=== PATIENT | female | born 1940 | race Caucasian/White ===

== ENCOUNTER 2019-10-29 14:24 | Observation (INO) | payer OTHER ==
[~2019-10-29] VITALS: Ht 149.9 cm; Wt 65.3 kg
--- NOTE | ~2019-10-29 | HC ---
[facility] [place] [address] CONSULTATION Name: RUDY LIGHT Room #: REG [facility]#: [id number] Admission: 10/29/19 Attend Phys: Discharge: Date of : 42 Report #: [id number] THIS REPORT FOR: cc: Pedro Casarez,Buddy Zhao MD ~ CC: Nikolay Casarez DATE OF SERVICE: 10/29/2019 HISTORY OF PRESENT ILLNESS: This is a 79-year-old female patient who was evaluated by me for ataxia. She apparently was weak and fell, some numbness was noticed on the left side. I talked to Dr. Mesa and they all indicated the patient's symptoms are improving. She feels she is back to the baseline. Noncontrast CT scan of the head was okay. REVIEW OF SYSTEMS: Positive for some depression. She denies any prior history of stroke. Because of the urgency of the situation review of systems was done quickly. She is a diabetic. She has not taken the treatment for some time and does not check her blood sugar. She has not been to her family doctor's office and they require her to come back before they fill her medication. When she came in, her blood sugar was more than 400, which was 446. Her vitals were running reasonably well, although her blood pressure was little high when she came in. PAST MEDICAL HISTORY: Negative for CVA. FAMILY HISTORY: This patient has a supportive family and I talked to them in detail. PHYSICAL EXAMINATION: My examination indicate she was alert, responsive and her speech was at her baseline. Cranial nerve examination was pretty much unremarkable. I did not see any marked hemianopsia, although her cooperation is poor. I need to recheck it again. I did not see any gross facial palsy. On NIH scale, she is able to hold the left arm and left leg up for without any drift. When I checked, but she looks weaker on the left side than the right side, the best I can tell. She is right handed, some difference is expected. When I did the sensation, she says it feels somewhat differently, but she can feel. She has no nigrxd-vz-ivzn or khjs-pc-rscn abnormality. I even made her walk and she is able to walk without much assistance. It was mainly a standby assist. She had a CT scan of the head. I have talked to Dr. Mesa and I told her if her BUN and creatinine is normal, he can do a CT angio and perfusion, but if it is abnormal, MRI should be done. CT angio does indicate that she may have an aneurysm and there is a question of stroke there. Clinically, she has [address] [address] CONSULTATION Name: NADEGERUDY Room #: REG [facility]#: [id number] Admission: 10/29/19 Attend Phys: Discharge: Date of : 42 Report #: [id number] improved. I had a long talk with the patient and the son. We talked about TPA. We used to give TPA to the patients who even have a minor deficit. Now a study has indicated that it is not beneficial in those circumstances. Other studies have some contradicting as well. I discussed all of them. I discussed the option of giving her TPA. They do not want TPA and that is reasonable since she is improving, but I would like to give her fluids. Her GFR actually is low at 40. She did get 1000 mL of normal saline. I will keep her on normal saline to keep her blood pressure somewhat high. She does have an aneurysm. It is probably an incidental finding. I asked the Emergency Room doctor to call delicia and and evaluate her for aneurysm. If they do not think aneurysm need to be addressed and she can be given aspirin and Plavix that is what we will give her. If they think aneurysm need to be addressed, she needs to be transferred there. More than 15 minutes of time was spent taking care of this patient today and majority was counseling and coordinating and I am going to see the patient again in a minute and talked them more. Thank you very much for this referral and if you have any questions, please feel free to contact me. By: 58 57 Buddy Gomes MD /nt
[2019-10-29 14:25] VITALS: BP 187/66
[2019-10-29 14:49] LABS: ABSOLUTE NEUTROPHILS 4.7 thou/uL (1.4-8.2); BASOPHILS 0.8 % (0.0-2.0); HEMATOCRIT 42.1 % (37.0-47.0); HEMOGLOBIN 13.9 gm/dL (12.0-15.0); LYMPHOCYTES 21.8 % (24.0-44.0); MCH 30.9 pg (26.0-34.0); MCHC 33.1 g/dL (28.0-37.0); MCV 93.5 fL (80.0-100.0); PLATELET COUNT 222 thou/uL (150-400); POLYS 68.4 % (36.0-66.0); RBC 4.51 mil/uL (4.20-5.00); RDW 12.6 % (10.5-14.5); WBC 6.9 thou/uL (4.0-11.0)
--- NOTE | 2019-10-29 14:53 | NUR ---
hospice office coordinator to see patient. pleasant 79y/o female. reports left sided weakness resulting in a fall from the bed. per EMS patient was leaning to the right side multiple times. blood sugar was 435 per EMS. pt taken directly to ct and tolerated well. NIHSS was 2. patient reported left lower ext sensory deficit as well as unable to state her age. we sat the patient up on the side of the bed and she did in fact lean to the right multiple times. she said she normally walks around without any difficulty and lives at home alone. she does have a walker at home but does not use it.
[2019-10-29 15:04] LABS: ANION GAP 11 mmol/L (7-16); BUN 21 mg/dL (7-18); CHLORIDE 97 mmol/L (98-107); CO2 28 mmol/L (21-32); CREATININE 1.3 mg/dL (0.6-1.0); GLUCOSE 446 mg/dL (74-106); POTASSIUM 4.2 mmol/L (3.5-5.1); SODIUM 136 mmol/L (136-145)
[2019-10-29 15:05] LABS: INR 1.3; PROTIME 13.6 Seconds (9.3-11.4)
[2019-10-29] MEDS ORDERED: NOHOMEMEDICATIONS (15:07)
[2019-10-29] MEDS ORDERED: GABAPENTIN100 MG PO (15:08)
[2019-10-29] MEDS ORDERED: VENLAFAXINE HCL25 MG PO (15:09)
[2019-10-29 15:16] LABS: ALBUMIN 2.8 g/dL (3.4-5.0); MAGNESIUM 1.7 mg/dL (1.8-2.4); SGOT 12 U/L (15-37); SGPT 19 U/L (30-65); TOTAL BILIRUBIN 0.4 mg/dL (0.2-1.0); TOTAL PROTEIN 6.7 g/dL (6.4-8.2); TROPONIN-I <0.06 ng/mL (<0.06)
--- NOTE | 2019-10-29 16:07 | EKG ---
[facility] [place] [address] ELECTROCARDIOGRAM REPORT Name: NADEGE,RUDY Room #: REG [facility]#: [id number] Admission: 10/29/19 Attend Phys: Discharge: Date of : 42 Report #: [id number] THIS REPORT FOR: cc: Pedro Casarez Kent DO Santiago, Patrick MD [facility] ~ THIS REPORT FOR: //name// [facility] ED Test Date: 2019-10-29 Test Time: 14:51:19 Pat Name: RUDY LIGHT Department: Room: Gender: F Applications Analyst: DENIS COYNE : 1940 Requested By: Nikolay Mesa Order Number: [id number] MD: Lino Lockhart Measurements Intervals Tyro Rate: 77 P: 15 KS: 150 QRS: -10 QRSD: 86 T: 29 QT: 400 QTc: 453 Interpretive Statements Sinus rhythm Low voltage, precordial leads Baseline wander in lead(s) I,aVL No previous ECG available for comparison Electronically Signed On 10-29-2019 16:07:26 CDT by Lino Lockhart [email or web address] <ELECTRONICALLY SIGNED> By: Lino Lockhart MD, FACC 10/29/19 1607 [id number] [id number] Lino Lockhart MD, [facility] /EPI
[2019-10-29 16:53] LABS: URINE BILIRUBIN NEGATIVE (Negative); URINE BLOOD TRACE (Negative); URINE CLARITY CLEAR; URINE COLOR YELLOW; URINE GLUCOSE-RANDOM* 3+ (Negative); URINE KETONES 1+ (Negative); URINE LEUKOCYTES-REFLEX NEGATIVE (Negative); URINE NITRITE-REFLEX NEGATIVE (Negative); URINE PROTEIN (DIPSTICK) NEGATIVE (Negative); URINE UROBILINOGEN 0.2 E.U./dl (0.2-1.0)
[2019-10-29 17:35] LABS: AMP/METHAMP Negative (Negative); BARBITURATES Negative (Negative); BENZODIAZEPINES Negative (Negative); COCAINE Negative (Negative); METHADONE Negative (Negative); OPIATES Negative (Negative); PCP Negative (Negative)
[2019-10-29 20:56] VITALS: BP 152/76
[2019-10-29 21:21] VITALS: BP 170/62
[2019-10-29 21:41] VITALS: BP 149/67
[2019-10-29 23:54] VITALS: BP 145/84
--- NOTE | 2019-10-30 04:16 | NUR ---
Pt was an ER admit who presented with elevated blood sugar and TIA symptoms. Pt is alert and oriented with no sign of distress noted. Pt is stable. Admission assessment and data completed. Denies any pain. Fall precaution in place. No skin issues noted. NIH performed. Scheduled meds administered. Pt tolerated PO intake. No acute events overnight. Continue to monitor pt. No further needs at this time.
[2019-10-30 05:48] VITALS: BP 164/86
[2019-10-30 05:58] LABS: HEMATOCRIT 41.5 % (37.0-47.0); HEMOGLOBIN 13.8 gm/dL (12.0-15.0); MCH 31.7 pg (26.0-34.0); MCHC 33.4 g/dL (28.0-37.0); RBC 4.36 mil/uL (4.20-5.00); RDW 12.6 % (10.5-14.5); WBC 7.8 thou/uL (4.0-11.0)
[2019-10-30 06:45] LABS: CALCIUM 8.9 mg/dL (8.5-10.1); CREATININE 0.9 mg/dL (0.6-1.0); MAGNESIUM 2.2 mg/dL (1.8-2.4); POTASSIUM 4.3 mmol/L (3.5-5.1)
[2019-10-30 06:53] LABS: CHOLESTEROL 302 mg/dL (<200); HDL CHOLESTEROL 39 mg/dL (>40); LDL CHOLESTEROL 226 mg/dL (<100); TC:HDL 7.7 Ratio (Not establshd); TRIGLYCERIDE 185 mg/dL (<150); VLDL 37 mg/dL (<40)
[2019-10-30 06:54] LABS: SERUM ASSESSMENT Clear
[2019-10-30 08:50] VITALS: BP 167/77
[2019-10-30] MEDS ORDERED: ASPIR 8181 MG PO (09:06)
[2019-10-30] MEDS ORDERED: ACETAMINOPHEN325 M1 PO (09:07)
[2019-10-30] MEDS ORDERED: PLAVIX 75 MG TA75 MG PO (09:14)
[2019-10-30] MEDS ORDERED: LIPITOR 10 MG10 M1 PO (09:14)
[2019-10-30] MEDS ORDERED: GLYBURIDE 5 MG T5 M1 PO (09:14)
--- NOTE | 2019-10-30 11:53 | NUR ---
bedside nurse called stated hospitalist said if therapy thinks needs rehab she can go today up to rehab or she will dc home with hh per bedside. cm passed on to cm team.
--- NOTE | 2019-10-30 11:57 | 2DMMODE ---
[facility] [place] [address] 2 D/M-MODE ECHOCARDIOGRAM Name: RUDY LIGHT Room #: 219-P [facility] Faith M.RHarpreet#: [id number] Admission: 10/29/19 Attend Phys: Gladys Bradley Discharge: Date of : 42 Report #: [id number] THIS REPORT FOR: cc: Pedro Casarez Kent DO Lammoglia,Oumra Palma MD ~ APPROVED REPORT Study performed: 10/30/2019 11:12:23 EXAM: Comprehensive 2D, Doppler, and color-flow Echocardiogram Patient Location: Bedside Room #: 219 Status: routine BSA: 1.60 HR: 74 bpm BP: 145/84 mmHg Rhythm: NSR Other Information Study Quality: Good Indications CVA/TIA Diabetes CAD Hypertension/HDD Echo Enhancing Agent Indication: Rule out Shunt Agent(s) / Amount(s) Used: Agitated Saline 7 cc 2D Dimensions RVDd: 31.24 mm IVSd: 10.07 (7-11mm) LVOT Diam: 19.11 (18-24mm) LVDd: 48.28 mm PWd: 10.32 (7-11mm) Ascending Ao: 28.44 (22-36mm) LVDs: 34.05 (25-40mm) Aortic Root: 29.11 mm IVC: 14.00 mm Volumes Left Atrial Volume (Systole) Single Plane 4CH: 32.93 mL Single Plane 2CH: 34.98 mL LA ESV Index: 23.00 mL/m2 [facility] [address] [place] [address] 2 D/M-MODE ECHOCARDIOGRAM Name: RUDY LIGHT Room #: 219-P [facility] IN ..#: [id number] Admission: 10/29/19 Attend Phys: Gladys Bianchi Discharge: Date of : 42 Report #: [id number] Aortic Valve AoV Peak Jorge.: 1.29 m/s AO Peak Gr.: 6.67 mmHg LVOT Max P.41 mmHg LVOT Max V: 1.05 m/s PAKO Vmax: 2.33 cm2 Mitral Valve E/A Ratio: 0.7 MV Decel. Time: 301.75 ms MV E Max Jorge.: 1.02 m/s MV A Jorge.: 1.53 m/s MV PHT: 87.51 ms IVRT: 119.95 ms Pulmonary Valve PV Peak Jorge.: 0.93 m/s PV Peak Gr.: 3.50 mmHg Pulmonary Vein P Vein S: 0.52 m/s P Vein A: 0.27 m/s P Vein D: 0.27 m/s P Vein A Dur.: 101.5 msec P Vein S/D Ratio: 1.93 Left Ventricle The left ventricle is normal size. There is normal LV segmental wall motion. There is normal left ventricular wall thickness. Left ventricular systolic function is normal. The left ventricular ejection fraction is within the normal range. LVEF is 55-60%. Grade I - abnormal relaxation pattern. Right Ventricle The right ventricle is normal size. The right ventricular systolic function is normal. Atria The left atrium size is normal. Interatrial septum is intact without evidence of ASD or PFO. The right atrium size is normal. Aortic Valve The aortic valve is normal in structure. The Aortic valve is sclerotic. Trace to mild aortic regurgitation. There is no aortic valvular stenosis. Mitral Valve The mitral valve is normal in structure. Trace mitral regurgitation. No evidence of mitral valve stenosis. [facility] [address] [place] [address] 2 D/M-MODE ECHOCARDIOGRAM Name: RUDY LIGHT Room #: 219-P [facility] IN M.R.#: [id number] Admission: 10/29/19 Attend Phys: Gladys Bianchi Discharge: Date of : 42 Report #: [id number] Tricuspid Valve The tricuspid valve is normal in structure. There is no tricuspid valve regurgitation noted. Pulmonic Valve The pulmonary valve is normal in structure. There is no pulmonic valvular regurgitation. Great Vessels The aortic root is normal in size. IVC is normal in size and collapses >50% with inspiration. Pericardium There is no pericardial effusion. <Conclusion> The left ventricle is normal size. LVEF is 55-60%. The aortic valve is normal in structure. The Aortic valve is sclerotic. Trace to mild aortic regurgitation. The mitral valve is normal in structure. Trace mitral regurgitation. The pulmonary valve is normal in structure. There is no pericardial effusion. <ELECTRONICALLY SIGNED> By: Oumar Cordero MD 10/30/19 1156 1156 1156 Oumar Cordero MD /INF
[2019-10-30 12:08] VITALS: BP 152/74
[2019-10-30 14:00] VITALS: BP 152/74
[2019-10-30 14:55] VITALS: BP 152/74
--- NOTE | 2019-10-30 15:29 | NUR ---
PT CARE ASSUMED APPROX 0700. ASSESSMENTS CHARTED. PT DENIES PAIN AND SOA. VSS. UP WITH MIN ASSIST. PT DISCHARGING AT THIS TIME. PREFERRED HOME DISMISSAL. DR AGREEEABLE WITH HH. DISCHARGE EDUCATION DONE WITH PT BY Elizabeth AND REINFORCED BY THIS NURSE. PT DENIES QUESTIONS OR CONCERNS REGARDING POC. PT'S SON WILL BE NOTIFIED OF DISCHARGE CHANGES. IV OUT, TELE OFF. PT AWAITING TRANSPORTATION AT THIS TIME.
--- NOTE | 2019-10-30 17:17 | NUR ---
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 HE REPORTED THAT HE'D DEFINITELY BE TO GET HIS MOM THIS EVENING BUT THAT HE DIDN'T KNOW WHAT TIME DUE TO HIS DAUGHTER BEING SICK. CHARGE NURSE AWARE.
--- NOTE | 2019-10-30 18:45 | NUR ---
PT HAS NOT LEFT YET. REPORT TO BE GIVEN TO NOC RN. ALL TASKS FOR DISCHARGE COMPELTED.
[2019-10-30 20:13] VITALS: BP 145/71
--- NOTE | 2019-10-30 20:45 | NUR ---
PT DISCHARGED TO HOME VIA PRIVATE CAR ACCOMPANIED BY THE SON.PT DENIES ANY CONCERSN
[2019-10-31 06:06] LABS: GLYCOHEMOGLOBIN (HGB A1C) 16.3 % (4.8-5.6)
== END 2019-10-30 20:30 | disposition home or self-care (01) ==
LOC: ER 14:24 → 2N 20:39 → EROBS 20:39 → 2N 21:23
PROVIDERS: Emergency Medicine; Nurse Practitioner Family; ADMIT Hospitalist; ATTEND Hospitalist
DX: S40.022A Contusion of left upper arm, initial encounter (principal); M48.02 Spinal stenosis, cervical region; I25.10 Atherosclerotic heart disease of native coronary artery without angina pectoris; I10 Essential (primary) hypertension; E78.5 Hyperlipidemia, unspecified; E11.65 Type 2 diabetes mellitus with hyperglycemia; F32.9 Major depressive disorder, single episode, unspecified; G62.9 Polyneuropathy, unspecified; G45.9 Transient cerebral ischemic attack, unspecified; I25.2 Old myocardial infarction; Z79.899 Other long term (current) drug therapy; W19.XXXA Unspecified fall, initial encounter; Y93.89 Activity, other specified; Y92.89 Other specified places as the place of occurrence of the external cause
CPT/HCPCS: 10081